=== PATIENT | male | born 1990 | race Caucasian/White ===

== ENCOUNTER 2021-04-13 19:46 | Emergency (ER) | payer SELFPAY ==
[2021-04-13 19:55] VITALS: BP 127/77; PULSE 96; RESP 16; TEMP 36.9; O2SAT 98
--- NOTE | 2021-04-13 20:44 | NUR.NOTE ---
Nursing Note: er hot baller went to assess pt. pt left without notifiying staff. pt had a wet-dry gauze with kerlex and tape securing gauze. no bleeding was noted and pt was aox3 and speaking in clear and full sentences.
== END 2021-04-13 20:51 ==
DX: Z53.21 Procedure and treatment not carried out due to patient leaving prior to being seen by health care provider (principal)

== ENCOUNTER 2021-04-18 16:09 | Emergency (ER) | payer SELFPAY ==
[2021-04-18 16:27] VITALS: BP 123/72; PULSE 83; TEMP 36.9; O2SAT 100
--- NOTE | 2021-04-18 16:34 | W.ED.GENAD ---
Discharge Plan Disposition Patient Disposition: HOME Condition: Stable Discharge Details Clinical Impression: Laceration of knee, left, Open wound with delay in treatment Primary Care Provider: Unknown,Unknown ED Provider: Edda Meyers Home Meds and New Rx's Prescriptions: New cephalexin 500 mg capsule 500 mg PO QID 7 Days Qty: 28 RF: 0 Discharge Instructions Instructions: Laceration (ED) Additional Instructions: Keep wound clean and dry. Cover wound with bandage if risk of contamination. Otherwise you can keep the wound open to air if resting at home to allow edges to dry and heal. Take antibiotics as directed until finished. Your prescription has been sent electronically to your pharmacy. Call the pharmacy to make sure your prescription is ready before pickup. Take the prescription as directed. Return to the emergency department in 10 days for suture removal. You have been placed on care management list to arrange for a follow-up appointment with your primary care doctor to establish care and for follow-up. Discharge Data Discharge Date/Time-TO BE ENTERED AT DEPARTURE: 04/18/21 19:35 Discharge Physician: Edda Meyers Medical Decision Making 31-year-old male presents with left knee laceration sustained when a glass window broke over his knee 4 days ago. He presented to the ED 4 days ago for this but did not want to wait for treatment. He has a 8 cm V-shaped laceration overlying his proximal anterior tibia. His tetanus is up-to-date. Case discussed with Dr. Martinez who recommends loose sutures and antibiotics. X-ray reviewed and notes anterior soft tissue swelling consistent with his laceration but no evidence of fracture or foreign Secondary to high volume and acuity in the ED, sutures placed by nurse practitioner Kristin Huang. Please see her procedure note for details. Patient given dose of Keflex here and to go and prescription sent electronically to his pharmacy. Instructed on the importance of proper wound care. Advised return to the ED in 10 days for suture removal. Usual and customary return precautions given prior to discharge. Medical Records Medical records reviewed: Yes I reviewed the patient's medical records. Imaging Data Radiologic Study: Radiologist's impression: XR KNEE LT 3V AP,LAT,LEONORA CLINICAL HISTORY: s/p window cut L knee, r/o fx vs foreign body. TECHNIQUE: 2D digital imaging was performed. COMPARISON: No exams were available for comparison FINDINGS: There is no evidence of acute fracture nor prominent joint effusion. There appears to be mild soft tissue swelling anterior to the anterior tibial tubercle. No radiopaque foreign body evident at this level nor elsewhere in the knee. No degenerative changes. Bone density is normal. IMPRESSION: Abnormal soft tissue density anterior to the anterior tibial tubercle. However, there does not appear to be a fracture nor evidence of obvious radiopaque foreign body. HPI General Mode of arrival: ambulatory. Date/Time Provider Initiated Documentation: 04/18/21 16:30. Limitations to Documentation: no limitations. Information obtained by: patient. HPI Narrative: Patient is a 31-year-old male who presents for evaluation of left knee laceration sustained when a glass window broke over his knee 4 days ago. Patient states he came to the ED at that time but it was busy and he states he waited 3 hours and they were unable to see him. Patient states he has been able to ambulate but with some pain. He states he is here today as the area has become more tender with yellow drainage. He denies fever. Related Data Home Medications Medication Instructions Recorded Confirmed cephalexin 500 mg PO QID 7 Days #28 cap 04/18/21 Previous Rx's Medication Instructions Recorded cephalexin 500 mg PO QID 7 Days #28 cap 04/18/21 Allergies Allergy/AdvReac Type Severity Reaction Status Date / Time No Known Allergies Allergy Unverified 04/13/21 19:58 General Stated Complaint: Laceration PAVAN: 3 Review of Systems All systems reviewed & are unremarkable except as noted in HPI and below Constitutional Constitutional: Reports as per HPI, Denies chills and Denies fever(s) Eyes Eyes: Denies blurry vision ENT Ears, Nose, Mouth, and Throat: Denies dizziness, Denies sore throat and Denies throat swelling Cardiovascular Cardiovascular: Denies chest pain and Denies dyspnea Respiratory Respiratory: Denies cough and Denies dyspnea Gastrointestinal Gastrointestinal: Denies abdominal pain, Denies diarrhea and Denies vomiting Genitourinary Genitourinary: Denies hematuria and Denies dysuria Musculoskeletal Musculoskeletal: Denies back pain and Denies numbness Integumentary/Breasts Skin/Breast: Denies lesions and Denies rash Neurologic Neurologic: Denies dizziness, Denies localized weakness and Denies numbness Allergic/Immunologic Allergic/Immunologic: Denies throat swelling [facility] Medical History (Updated 04/19/21 @ 14:41 by Edda Meyers DO) No significant past medical history Social History Smoking/Tobacco Use Status: Current every day Tobacco Type: cigarettes Smoking risk assessment performed?: Yes Alcohol Intake: never Drug use: Daily Substance use type: marijuana Do you feel safe at home: Yes Do you feel safe in your relationship?: Yes Exam Const General: cooperative, healthy appearing and no acute distress HENMT Head: normal to inspection Face and sinus: normal facial exam Eyes General: appearance normal, both eyes and all related structures EOM: EOM intact bilaterally Neck Neck: normal visual inspection and No submandibular swelling Lymphatic: no lymphadenopathy noted Chest Chest: normal inspection of the chest and no tenderness Resp Effort & Inspection: normal respiratory effort and able to speak in complete sentences Auscultation: clear to auscultation bilaterally Cardio Rate: regular rate Rhythm: regular rhythm GI Inspection: normal to inspection Palpation: soft, not firm, not rigid and nontender Auscultation: normal bowel sounds Skin General skin exam: no rashes or lesions noted Neuro General: patient alert, patient awake and patient oriented x3 Cognition: normal cognition Speech: speech normal Motor: muscle tone normal throughout Sensory Exam: no sensory deficits noted Extrem Knee images: 1. 8 cm V-shaped laceration distal knee/proximal tibia. It extends to the dermis and subcu tissue. The edges appear pink but there is no erythema, induration or fluctuance. There is no pus drainage or active bleeding. Full range of motion at left knee without ligamentous laxity, deformity or significant pain. Psych Appearance: grossly normal Mental Status: mental status grossly normal Speech and Movement: speech and movement normal Affect: normal affect Course Vital Signs Vital signs: Vital Signs Temperature 98.4 F 04/18/21 16:27 Pulse 83 04/18/21 16:27 Blood Pressure 123/72 04/18/21 16:27 Pulse Oximetry 100 04/18/21 16:27 Temperature 98.4 F 04/18/21 16:27 Temperature Source Temporal Artery Scan 04/18/21 16:27 Pulse 83 04/18/21 16:27 Respiratory Effort Non-Labored 04/18/21 16:29 Blood Pressure 123/72 04/18/21 16:27 Blood Pressure Position Sitting 04/18/21 16:27 Pulse Oximetry 100 04/18/21 16:27 Oxygen Delivery Method Room Air 04/18/21 16:27 Oxygen Flow Rate 0 07/17/21 16:27 Pain Level 6 04/18/21 16:27
--- NOTE | 2021-04-18 16:45 | DI.RAD_ITS ---
Exam(s) XR KNEE LT 3V AP,LAT,LEONORA EXAM: XR KNEE LT 3V AP,LAT,LEONORA CLINICAL HISTORY: s/p window cut L knee, r/o fx vs foreign body. TECHNIQUE: 2D digital imaging was performed. COMPARISON: No exams were available for comparison FINDINGS: There is no evidence of acute fracture nor prominent joint effusion. There appears to be mild soft tissue swelling anterior to the anterior tibial tubercle. No radiopaqu e foreign body evident at this level nor elsewhere in the knee. No degenerative changes. Bone densi ty is normal. IMPRESSION: Abnormal soft tissue density anterior to the anterior tibial tubercle. However, there does not appea r to be a fracture nor evidence of obvious radiopaque foreign body. DATA REPOSITORY: RADIATION DOSE DELIVERED:
--- NOTE | 2021-04-18 17:59 | DI.VRAD_ITS ---
PROCEDURE INFORMATION: Exam: XR Left Knee Exam date and time: 04/18/2021 4:51 PM Age: 31 years old Clinical indication: Pain; Patient HX: S/P window cut left knee, R/O FX vs foreign body TECHNIQUE: Imaging protocol: XR Left knee. Views: 3 views. COMPARISON: No relevant prior studies available. FINDINGS: Bones/joints: Soft tissue thickening in the prepatellar region and possibly involving the patellar tendon. No evidence of fracture or malalignment. A linear lucency in the lateral tibial plateau is favored to be projectional. Soft tissues: No foreign body. IMPRESSION: A linear lucency in the lateral tibial plateau is favored to be projectional. However, for high clinical concern, CT is offered. Dictated and Authenticated by: Armond Monroe MD. Ordering:ALLISON Bañuelos MD
--- NOTE | 2021-04-18 18:58 | W.ED.PROC ---
Date of service: 04/18/21 Time of Service: 18:58 Procedures Laceration Laceration 1: Site: lower extremity (Left knee) and other (4 day old gaping laceration, sutured with #5 simple interrupted ) Side (If applicable): left Size (cm): 9 Description: linear Depth: simple, single layer Local Anesthetic: Lidocaine 1% Amount of anesthesia used (mL): 8 Pre-repair: wound explored, irrigated extensively and deep structures intact Skin layer closed with: other (Prolene) Size (cm): 3-0 Number of sutures: 5 Technique: simple, interrupted Narrative Narrative Narrative: Requested to repair laceration by Dr. Meyers. Wound was anesthetized with 1% lidocaine patient tolerated well anesthesia achieved. Cleaned with 1% chlorhexidine surgical scrub. 5 simple interrupted sutures placed wound is still gaping after repair to allow for possible infection and since wound is 4 days old.
[2021-04-18] MEDS: Cephalexin 500 MG CAP, 4 CAPS/BTL PO (19:29)
--- NOTE | 2021-04-19 02:22 | NUR.NOTE ---
referral to care management to establish pcp to f/u 1-2wks knee laceration.Nursing Note:
== END 2021-04-18 19:35 | disposition home or self-care (01) ==
PROVIDERS: Emergency Provider Physician Assistant
DX: S81.012A Laceration without foreign body, left knee, initial encounter (principal); W26.0XXA Contact with knife, initial encounter
CPT/HCPCS: 12004; 73562; 99281